=== PATIENT | female | born 1990 | race Caucasian/White ===

== ENCOUNTER → 2017-12-01 | Outpatient (REF) | payer BC | LOC: M LAB REF 18:29 | DX: Z12.4 Encounter for screening for malignant neoplasm of cervix (principal) | CPT/HCPCS: G0123 ==

== ENCOUNTER → 2019-01-06 | Outpatient (CLI) | payer OTHER ==
[~2019-01-06] MED LIST: IBUP80TA PO; PRENTAB9 PO
--- NOTE | 2019-01-06 10:13 | REP ---
OB ULTRASOUND: Real-time sonographic evaluation of the gravid uterus performed. There are no prior studies for comparison. Reported estimated gestational age is 37 weeks 6 days, EDC 01/21/2019. Today's measurements indicate appropriate growth. Biometry and Growth: BPD 89 mm = 36 weeks 1 day, 25th percentile HC 327 mm = 37 weeks 0 days, 37th percentile AC 325 mm = 36 weeks 3 days, 29th percentile FL 70 mm = 35 weeks 5 days, 18th percentile HC/AC ratio 1.0 within normal range. Estimated weight 2898 grams, 32nd percentile. Cervical length: Cervix measures approximately 2.7 cm in length and is closed. heart rate: 160 beats per minute. position: Placenta: Amniotic fluid: Subjectively appears lower limits of normal. ZAK 9.1 within normal range of 7.3 to 24.0. S/D ratio: 2.23 within normal range of 1.6 to 2.6. RI: 0.55, slightly below the normal range 0.59 to 0.75. Visualized intracranial structures are unremarkable. Four-chamber heart, stomach, kidney, bladder and spine are grossly unremarkable. position vertex. Placenta is fundal and grade 1-2 with no previa or abruption. Electronically Signed by Matthew Zimmerman MD 01/06/2019 01:17 P
== END ==
LOC: M RAD 08:59
PROVIDERS: ATTEND Registered Nurse Maternal Newborn
DX: Z34.83 Encounter for supervision of other normal pregnancy, third trimester (principal); Z3A.37 37 weeks gestation of pregnancy

== ENCOUNTER 2019-01-13 18:46 | Inpatient (IN) | payer OTHER ==
[~2019-01-13] VITALS: Ht 160 cm; Wt 79.3 kg
[2019-01-13 18:56] VITALS: BP 132/78
[2019-01-13] MEDS ORDERED: PRENTAB9 PO (19:03)
[2019-01-13] MEDS ORDERED: LACTATED RINGER'S 1000 ML IV STA (19:16)
--- NOTE | 2019-01-13 19:31 | HPEPDOC ---
Obstetrical History & Physical General Date of Admission Jan 13, 2019 at 19:10 History of Present Illness 28 yo at 38+6 weeks gestation by LMP of [id number] c/w 10+1 week US on presents to L&D with the complaint of regular, painful contractions. She denies any vaginal bleeding, leakage of fluid, or discharge. She endorses excellent movement. 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 pertinent history Past Medical History Medical History Anxiety History of PVCs Surgical History: Other (LEEP, hernia repair) Family History Significant Family History: No pertinent family hx Social History Marital Status: Family situation: Spouse/partner home Psychosocial History: No pertinent psych hx * Smoker: non-smoker Alcohol: Denies Drugs: denies Imunizations Tdap status: current Influenza Status: current Allergies Coded Allergies: No Known Allergies (Unverified , 01/13/19) Medications Scheduled No.137/Iron/Folic Acd ( Vitamin Tablet) 1 Each Tablet, 1 TAB PO DAILY Physical Examination Physical Examination GENERAL: Alert and oriented times three. ABDOMEN: Gravid and non-tender to touch. FETUS: Is vertex (VTX) by sterile vaginal examination (SVE) EXTREMITIES: No edema. Vital Signs/I&O Vital Signs Date Time Temp Pulse Resp B/P (MAP) Pulse Ox O2 Delivery O2 Flow Rate FiO2 01/13/19 18:56 97.9 111 20 132/78 (96) Laboratory Data Urine Culture: No Growth Pertinent Laboratoy Data Blood Type: O+ RBC Antibody Screen: Negative HIV: Negative Hepatitis B: Negative Hepatitis C: Unknown Rapid Plasma Reagin: Nonreactive Rubella: Immune Varicella: Nonreactive Chlamydia/Gonorrhea: Negative Group B Streptococcus: Negative Quad Screen Test: Negative (Also had low risk cff DNA genetic screening) Glucose Tolerance Test: 70 Anatomy Ultrasound Placenta Location: Posterior Normal Anatomy: Yes Placenta Previa: No Steroid Therapy Steroid Therapy: No Vaginal Examination Dilation: 4 cm Effacement: 90% Station: -1, 0 Cervical Consistency: Soft Cervical Position: Anterior Presentation: Cephalic presentation Position: Vertex (occiput) Assessment Heart Rate (FHR): 140 Variability: Moderate Accelerations: Positive Decelerations: None Tocometer Contractions: Yes Frequency: regular, every 1-3 min. Duration: less than 60 seconds Strength: palpated as moderate Assessment/Plan Assessment 28 yo at 38+6 weeks gestation presents to L&D in labor. Uncomplicated . Plan Admit to L&D for expectant management of labor. Will augment as clinically indicated. Apply IV fluids. GBS negative. Clear liquid diet. Patient may have epidural if desired. Anticipate . DO PRIYANKA Méndez CHRISTOPHER J. DO Jan 13, 2019 19:31
[2019-01-13 19:38] LABS: HEMATOCRIT 36.6 % (36.0-47.0); HEMOGLOBIN 12.9 g/dl (12.0-15.5); MEAN CORPUSCULAR HEMOGLOBIN 32.6 pg (27.0-33.0); MEAN CORPUSCULAR HGB CONC 35.2 g/dl (32.0-36.5); MEAN CORPUSCULAR VOLUME 92.4 fl (80.0-96.0); PLATELET COUNT, AUTOMATED 218 10^3/uL (150-450); RED BLOOD COUNT 3.96 10^6/uL (4.00-5.40); WHITE BLOOD COUNT 20.8 10^3/uL (4.0-10.0)
[2019-01-13 19:42] VITALS: BP 114/60
[2019-01-13 20:25] VITALS: BP 109/67
[2019-01-13 21:32] VITALS: BP 123/61
[2019-01-13 23:03] VITALS: BP 109/65
[2019-01-13] MEDS ORDERED: PROMETHAZINE INJ 25 MG/ML VIAL (J2550) IV ONE (23:30)
[2019-01-13] MEDS ORDERED: BUTORPHANOL 2 MG/ML INJ (J0595) IV ONE (23:30)
[2019-01-13] MEDS: LR 1,000 ML IV SCH (23:36)
[2019-01-13 23:41] VITALS: BP 117/63
[2019-01-14] VITALS (32 sets, daily range): BP systolic 96–133; BP diastolic 53–78
[2019-01-14] MEDS ORDERED: FENTANYL 2MCG/ML ROPIVACAINE 0.2% IN 0.9% NACL 100ML IVBAG As Ordered ONE (01:36)
[2019-01-14] MEDS ORDERED: REFRIGERATOR IV KEYS XX PRN (02:45)
[2019-01-14] MEDS ORDERED: diphenhydrAMINE INJ 50MG/ML VIAL (J1200) IV PRN (02:45)
[2019-01-14] MEDS ORDERED: ePHEDrine SULFATE 25 MG/5 ML(5MG/ML) SYRINGE IV PRN (02:45)
[2019-01-14] MEDS ORDERED: EPIDURAL COMMENT XX SCH (02:45)
[2019-01-14] MEDS ORDERED: ONDANSETRON 4MG/2ML VIAL (J2405) IV PRN (02:45)
[2019-01-14] MEDS ORDERED: NALOXONE INJ 0.4 MG/1 ML VIAL (J2310) IV PRN (02:45)
[2019-01-14] MEDS ORDERED: EPIDURAL/PCA KEYS XX PRN (02:45)
[2019-01-14] MEDS ORDERED: FENTANYL/ROPIVACAINE/NACL BAG 100 ML EPIDURAL SCH (02:45)
[2019-01-14] MEDS ORDERED: LR 1,000 ML IV SCH (03:16)
--- NOTE | 2019-01-14 03:19 | IPNPDOC ---
Text Note Date of Service The patient was seen on 01/14/19. NOTE Presented to room for assessment of progress. Patient comfortable with epidural in place. Cervix: /-1. FHR Cat I. Contractions have somewhat spaced. Recommended starting pitocin for slowed progress. Patient amenable. All questions answered. DO Abe VS,Pedro, I+O VS, Pedro, I+O Laboratory Tests 01/13/19 19:28 Red Blood Count 3.96 L, Mean Corpuscular Volume 92.4, Mean Corpuscular Hemoglobin 32.6, Mean Corpuscular Hemoglobin Concent 35.2, Red Cell Distribution Width 12.3 Vital Signs Date Time Temp Pulse Resp B/P (MAP) Pulse Ox O2 Delivery O2 Flow Rate FiO2 01/14/19 02:06 109 20 120/78 (92) 01/14/19 01:01 99.0 ASHLEY MATHEW DO Jan 14, 2019 03:19
[2019-01-14] MEDS ORDERED: OXYTOCIN DRIP 30 UNITS in APPROPRIATE DILUENT 1 EA IV SCH (03:30)
[2019-01-14] MEDS: LR 1,000 ML IV SCH (03:34)
[2019-01-14] MEDS: OXYTOCIN DRIP 30 UNITS in APPROPRIATE DILUENT 1 EA IV SCH ×2 (10:32→11:55)
--- NOTE | 2019-01-14 10:53 | IPNPDOC ---
Obstetrical Progress Note Date of Service Jan 14, 2019 Subjective Late entry Assumed care during sign out at 0730 of 28yo at term, admitted last night for labor. Pt started on pitocin this am and currently c/c/+1. Pt's epidural turned down at this time. S: Pt still comfortable with epidural in place, pushing, no concerns at this time. O: VSS FHR while pushing - 140s-150s, moderate variability with + accels; variable and intermittent late decels noted with pushing. Pt stopped pushing o/a 0835 in order to labor down. Prolonged late deceleration noted at 0850; I presented to pt's room, repositioned her from right side, removed peanut ball, and provided O2. VE at that time was C/C/+2. FHR returned to baseline without further interventions. RN called back to room and pushing resumed. o/a 0940, approximately 3 hours after pt started pushing, requested consult from Dr. Monsivais to evaluate labor/pushing progress. Pt continued to effectively push through delivery (see delivery summary). A: Active labor, second stage, Category II FHT while pushing and interventions in place. P: Anticipate Interventions as needed Consult OB as indicated Objective Vital Signs Date Time Temp Pulse Resp B/P (MAP) Pulse Ox O2 Delivery O2 Flow Rate FiO2 01/14/19 07:06 95 20 113/69 (84) 01/14/19 06:06 98.4 TARA DUARTE CNM Jan 14, 2019 10:53
[2019-01-14] MEDS ORDERED: ACETAMINOPHEN 500 MG TAB PO PRN (11:00)
[2019-01-14] MEDS ORDERED: ACETAMINOPHEN TAB 650MG DOSE (2X325MG) PO PRN (11:00)
[2019-01-14] MEDS ORDERED: DOCUSATE SODIUM 100 MG CAP PO PRN (11:00)
[2019-01-14] MEDS ORDERED: IBUPROFEN 800 MG TAB PO PRN (11:00)
[2019-01-14] MEDS ORDERED: DIBUCAINE 1% OINTMENT 30GM TOP PRN (11:00)
--- NOTE | 2019-01-14 11:04 | DNPDOC ---
[facility] Delivery Note Delivery Note DATE OF DELIVERY: 14 January 2019 PREDELIVERY DIAGNOSIS: 39+0 weeks gestation and labor. POST DELIVERY DIAGNOSIS: Delivered. PROCEDURE: Uncomplicated FACILITY MAINTENANCE MECHANIC: JAYLON Duarte ANESTHESIA: Epidural ESTIMATED BLOOD LOSS: 200 FINDINGS: 6lb 5oz, 2870g, Female , Score 9/9. DELIVERY SUMMARY: After 3+ hours of pushing, pt effectively pushed to deliver viable female infant over a protected perineum. head delivered direct OA and restituted to LOT. Right anterior shoulder delivered with ease, followed by left posterior shoulder, then remainder of body delivered to maternal abdomen where she was dried and stimulated, good lusty cry. Once cord stopped pulsing, clamped x2 and cut by FOB. Cord blood collected for type and sparkle. Placenta delivered spontaneously and appeared intact, 3VC. Pitocin bolus started, fundus firm, EBL 200. Upon inspection of vagina, perineum, and cervix, a 2nd degree midline vaginal laceration noted and repaired in usual fashion with 3-0 Chromic; hemostasis achieved. Family bonding well, anticipate uncomplicated PP Course. Plan for routine PP care. TARA DUARTE CNM Jan 14, 2019 11:04
[2019-01-14] MEDS: IBUPROFEN 600 MG TAB PO PRN (18:12)
[2019-01-15] MEDS: IBUPROFEN 600 MG TAB PO PRN (02:01)
[2019-01-15 06:00] VITALS: BP 109/60
[2019-01-15] MEDS ORDERED: PRENATAL VITAMINS CHEWABLE TABLET PO SCH (09:00)
--- NOTE | 2019-01-15 09:22 | IPNPDOC ---
Progress Note Date of Service: Jan 15, 2019 Day#: 1 Progress Note SUBJECT: Jose is a 28-year-old 1 now Para 1001 status post uncomplic ated spontaneous vaginal delivery at 39-0/7 weeks' at approximately 1012 hours on [id number] of a Female 6 pounds 8 ounces with post vaginal laceration (2MLL) and repair, doing well day # 1. She has been ambulating, voiding spontaneously without issue and tolerating regular diet. Breast feeding without issue. Reports lochia is decreasing. OBJECTIVE: VITAL SIGNS: Within normal limits, afebrile. Alert and oriented times three. Abdomen: Fundus firm at U-2. Soft, NTTP. ASSESSMENT: S/p uncomplicated after being admitted in labor. Vitals within normal limits, afebrile, hemodynamically stable with no evidence of infection. PLAN: 1. Discharge tomorrow. 2. Tylenol and Motrin for pain. 3. Encourage breast feeding and ambulation. 4. Routine PP Care 5. Routine PP visit in 6 weeks in clinic. MD Aniket VS, I&O, 24H, Fishbone Vital Signs/I&O Vital Signs Date Time Temp Pulse Resp B/P (MAP) Pulse Ox O2 Delivery O2 Flow Rate FiO2 01/15/19 06:00 97.7 103 18 109/60 (76) I&O- Last 24 Hours up to 6 AM 01/15/19 06:00 Intake Total 2217 ml Output Total 2670 ml Balance -453 ml SKYLAR BENZ MD Jan 15, 2019 09:22
--- NOTE | 2019-01-15 10:05 | IPNPDOC ---
Text Note Date of Service The patient was seen on 01/15/19. NOTE Patient was evaluated by both Dr. Marcial and I this morning- she is stable for discharge if she desires discharge today. I have signed her paper discharge form. Dr. Parul Monsivais MD VS,Pedro, I+O VS, Pedro, I+O Vital Signs Date Time Temp Pulse Resp B/P (MAP) Pulse Ox O2 Delivery O2 Flow Rate FiO2 01/15/19 06:00 97.7 103 18 109/60 (76) I&O- Last 24 Hours up to 6 AM 01/15/19 06:00 Intake Total 2217 ml Output Total 2670 ml Balance -453 ml Parul Monsivais MD Jan 15, 2019 10:05
[2019-01-15] MEDS ORDERED: IBUP80TA PO (10:07)
== END 2019-01-15 15:10 | disposition home or self-care (01) | DRG 807 ==
LOC: M LDO 18:46 → M LDI 19:10 → M OBS 01-14 11:47
PROVIDERS: ADMIT Obstetrics & Gynecology; ATTEND Registered Nurse Maternal Newborn
PROC: 10E0XZZ Delivery of Products of Conception, External Approach (ICD-10-PCS; principal; 2019-01-14)
PROC: 0KQM0ZZ Repair Perineum Muscle, Open Approach (ICD-10-PCS; 2019-01-14)
DX: O70.1 Second degree perineal laceration during delivery (principal); Z37.0 Single live birth; Z3A.39 39 weeks gestation of pregnancy

== ENCOUNTER 2019-01-23 19:39 | Emergency (ER) | payer OTHER ==
[~2019-01-23] VITALS: Ht 160 cm; Wt 77.3 kg
[2019-01-23] MEDS ORDERED: ACET-683 PO (19:49)
[2019-01-23 20:58] LABS: BASO # 0.1 10^3/uL (0.0-0.2); BASO % 0.6 % (0.0-1.0); EOS # 0.2 10^3/uL (0.0-0.50); EOS % 1.3 % (0.0-3.0); HEMATOCRIT 31.6 % (36.0-47.0); HEMOGLOBIN 10.7 g/dl (12.0-15.5); LYMPH # 1.6 10^3/uL (1.5-6.5); LYMPH % 12.4 % (24.0-44.0); MEAN CORPUSCULAR HEMOGLOBIN 31.8 pg (27.0-33.0); MEAN CORPUSCULAR HGB CONC 33.9 g/dl (32.0-36.5); MONO # 1.9 10^3/uL (0.0-0.8); MONO % 14.3 % (0.0-5.0); NEUTROPHILS % 67.5 % (36.0-66.0); PLATELET COUNT, AUTOMATED 203 10^3/uL (150-450); RED BLOOD COUNT 3.36 10^6/uL (4.00-5.40); WHITE BLOOD COUNT 13.3 10^3/uL (4.0-10.0)
[2019-01-23] MEDS ORDERED: NS 1,000 ML IV ONE (21:00)
[2019-01-23 21:09] LABS: ALBUMIN 2.3 GM/DL (3.2-5.2); ALT/SGPT 25 U/L (12-78); BILIRUBIN,DIRECT 0.2 MG/DL (0.0-0.2); BILIRUBIN,TOTAL 0.5 MG/DL (0.2-1.0); BLOOD UREA NITROGEN 14 MG/DL (7-18); CALCIUM LEVEL 8.4 MG/DL (8.5-10.1); CARBON DIOXIDE LEVEL 23 MEQ/L (21-32); CHLORIDE LEVEL 111 MEQ/L (98-107); CREATININE FOR GFR 0.89 MG/DL (0.55-1.30); GLOMERULAR FILTRATION RATE > 60.0 (>60); GLUCOSE, FASTING 110 MG/DL (70-100); LIPASE 120 U/L (73-393); POTASSIUM SERUM 3.1 MEQ/L (3.5-5.1); SODIUM LEVEL 143 MEQ/L (136-145); TOTAL PROTEIN 5.6 GM/DL (6.4-8.2)
--- NOTE | 2019-01-23 22:50 | REPVR ---
EXAM: US Abdomen Limited, Right Upper Quadrant EXAM DATE/TIME: 01/23/2019 9:15 PM CLINICAL HISTORY: 28 years old, female; Abdominal pain; Epigastric; Additional info: Ruq pain, fevers TECHNIQUE: Imaging protocol: Real-time ultrasound of the abdomen with image documentation. Examination was focused on the right upper quadrant. COMPARISON: No relevant prior studies available. FINDINGS: Liver: Unremarkable. Gallbladder: Partially contracted. No gallstones. No gallbladder wall thickening or pericholecystic fluid. Negative sonographic Sepulveda's sign, as per the performing inclusion special education teacher. Common bile duct: No stones. No ductal dilatation. Pancreas: Unremarkable as visualized. Right kidney: No mass. No definite stones. No hydronephrosis. IMPRESSION: No acute sonographic findings. Electronically signed by: Moses Irizarry On 01/23/2019 22:50:28 PM
--- NOTE | 2019-01-23 22:54 | REPVR ---
EXAM: US Pelvis Complete, Transabdominal EXAM DATE/TIME: 01/23/2019 10:31 PM CLINICAL HISTORY: 28 years old, female; Pelvic pain; Additional info: Post fever TECHNIQUE: Imaging protocol: Real-time transabdominal pelvic ultrasound with image documentation. Complete exam. COMPARISON: US OBS SINGEL GEST 01/06/2019 9:14 AM FINDINGS: Uterus/cervix: 12.1 x 6.3 x 9.8 cm. Small amount of endometrial/endocervical fluid without associated vascularity. Right ovary: Not identified. No adnexal mass. Left ovary: 3.1 x 1.4 x 3.4 cm. No mass. Normal blood flow. Free fluid: None. Bladder: Normal. IMPRESSION: 1. Enlarged, uterus with a small amount of endometrial/endocervical fluid. No associated vascularity to suggest retained products of conception or infection. 2. Nonvisualized right ovary. Electronically signed by: Moses Irizarry On 01/23/2019 22:54:03 PM
[2019-01-23] MEDS ORDERED: KEFL500C17 PO (23:42)
[2019-01-23] MEDS ORDERED: cefTRIAXone SOD 1 GM in D5W MINI-BAG PLUS 50 ML IV ONE (23:45)
[2019-01-24 00:16] VITALS: BP 114/78
--- NOTE | 2019-01-24 09:43 | REP ---
REASON: pyrexia. PRIORS: None. FINDINGS: The superior mediastinal structures are midline. The cardiac silhouette is unremarkable in size, shape, and position. The diaphragmatic surfaces of the lungs are regular, and the costophrenic angles are clear. The pulmonary rodriguez are clear. The imaged osseous structures are intact. IMPRESSION: There is no acute cardiopulmonary disease. Electronically Signed by Jan Alexander DO 01/24/2019 10:05 A
== END 2019-01-24 00:20 | disposition home or self-care (01) ==
LOC: M ED 19:39
DX: O90.89 Other complications of the puerperium, not elsewhere classified (principal); S39.011A Strain of muscle, fascia and tendon of abdomen, initial encounter; X58.XXXA Exposure to other specified factors, initial encounter; Y92.89 Other specified places as the place of occurrence of the external cause; N39.0 Urinary tract infection, site not specified
CPT/HCPCS: 71046; 76705; 76856; 80048; 80076; 81001; 83690; 85025; 87040; 87088; 87186; 96361; 96365; 99284; J0696

== ENCOUNTER → 2020-05-14 | Outpatient (CLI) | payer OTHER ==
[~2020-05-14] MED LIST changes: +ACET-683 PO; +KEFL500C17 PO
== END ==
LOC: M LABSMTC 10:07
PROVIDERS: ATTEND Pediatrics
DX: Z20.828 Contact with and (suspected) exposure to other viral communicable diseases (principal)

== ENCOUNTER → 2020-12-22 | Outpatient (REF) | LOC: M LABSMTC 12:08 | PROVIDERS: ATTEND Pediatrics | DX: Z20.822 Contact with and (suspected) exposure to COVID-19 (principal) ==